=== PATIENT | female | born 1970 | race Caucasian/White ===

== ENCOUNTER 2018-06-20 06:06 | Day surgery (SDC) | payer OTHER, BC ==
[2018-06-20] MEDS ORDERED: FENTAnyl 50 MCG/ML VIAL (08:35)
[2018-06-20] MEDS ORDERED: MIDAZOLAM 1 MG/ML 2 ML INJ ×2 (08:35)
== END 2018-06-20 15:16 | disposition home or self-care (01) ==
LOC: GIL 06:06
DX: K29.30 Chronic superficial gastritis without bleeding (principal); K21.9 Gastro-esophageal reflux disease without esophagitis; E03.9 Hypothyroidism, unspecified
CPT/HCPCS: 43239; 84703; 88305; 88312